=== PATIENT | male | born 1950 ===

== ENCOUNTER 2024-12-21 15:17 | Observation (INO) | payer MEDICARE, OTHER ==
[~2024-12-21] VITALS: Ht 172.7 cm; Wt 71.4 kg
[2024-12-21] VITALS (23 sets, daily range): BP systolic 109–169; BP diastolic 42–75
--- NOTE | 2024-12-21 15:20 | NUR ---
PT TO RM 6 VIA EMS.
[2024-12-21 15:41] LABS: BASO% 0.3 % (0-3); EOS% 1.2 % (0-8); LYMPH% 17.9 % (15-41); MEAN CELL VOLUME 95.6 fL CALC (80.0-100.0); MEAN CORPUSCULAR HGB 31.9 pG CALC (26.0-32.0); MEAN CORPUSCULAR HGB CONC 33.3 g/dL CAL (32.0-36.0); MONO% 9.1 % (2-13); NEUT# 4.15 thou/uL (1.82-7.42); NEUT% 71.5 % (42-76); RED BLOOD COUNT 4.08 mill/uL (4.70-6.10); RED CELL DISTRI WIDTH 12.1 % (11.5-15.5)
[2024-12-21 16:00] LABS: ALBUMIN 4.2 g/dL (3.2-5.0); ALKALINE PHOSPHATASE 41 u/l (38-126); ANION GAP 10 (6-22 (CALC)); BILIRUBIN, TOTAL 0.6 mg/dL (0.2-1.3); BUN 22 mg/dL (8-23); BUN/CREATININE RATIO 24 (12-20 (CALC)); CARBON DIOXIDE 29 mmol/l (22-30); CHLORIDE 104 mmol/l (95-108); CREATININE 0.9 mg/dL (0.7-1.3); ESTIMATED GFR 90 ML/MIN (>=90 (CALC)); POTASSIUM 4.1 mmol/l (3.5-5.1); SGOT/AST 35 u/l (19-48); SODIUM 139 mmol/l (137-146); TOTAL PROTEIN 6.7 g/dL (6.3-8.2)
[2024-12-21] MEDS ORDERED: DiphenhydrAMINE HCL 25 MG CPLT PO ONE (16:20)
[2024-12-21] MEDS ORDERED: METOCLOPRAMIDE HCL 10 MG/2 ML SDV IV ONE (16:20)
[2024-12-21] MEDS ORDERED: ORPHENADRINE CITRATE 30 MG/ML AMP IV ONE (16:25)
[2024-12-21] MEDS ORDERED: SODIUM CHLORIDE 0.9% 1,000 ML IV ONE (16:25)
[2024-12-21] MEDS ORDERED: KETOROLAC TROMETHAMINE 15 MG/ML SDV IV ONE (16:25)
--- NOTE | 2024-12-21 16:30 | NUR ---
Reassessment of patient completed. No distress noted.
--- NOTE | 2024-12-21 16:40 | NUR ---
at bedside, pt medicated. Lab and imaging results pending
[2024-12-21 17:25] LABS: URINE BILIRUBIN - DIPSTICK Negative (NEGATIVE); URINE BLOOD DIPSTICK Negative (NEGATIVE); URINE COLOR Yellow; URINE GLUCOSE - DIPSTICK Negative (NEGATIVE); URINE KETONE Negative (NEGATIVE); URINE LEUK ESTERASE Negative (NEGATIVE); URINE NITRITE - DIPSTICK Negative (Negative); URINE PROTEIN - DIPSTICK Negative (NEG-TRACE); URINE UROBILINOGEN - DIPSTICK 0.2 E.U./dL (0.2)
--- NOTE | 2024-12-21 17:28 | NUR ---
Reassessment of patient completed. No distress noted.
[2024-12-21] MEDS ORDERED: TAMSULOSIN0.4 MG PO (18:22)
[2024-12-21] MEDS ORDERED: SIMVASTATIN10 MG PO (18:22)
--- NOTE | 2024-12-21 19:00 | NUR ---
RECIEVED REPORT FROM JD RAWLS.
--- NOTE | 2024-12-21 19:12 | NUR ---
Report called and given Reynaldo on Med Surg
--- NOTE | 2024-12-21 19:48 | NUR ---
PT UPDATED ON POC, AWAITING FOR ADMISSION ORDERS AT THIS TIME. PT VOICES UNDERSTANDING WITH NO FURTHER QUESTIONS. PT CALL LIGHT WITHIN REACH.
--- NOTE | 2024-12-21 20:32 | NUR ---
PT CONTINUES WAITING FOR ADMISSION ORDERS. PT VOICES UNDERSTANDING AND APPRECIATION OF CARE.
[2024-12-21] MEDS ORDERED: ACETAMINOPHEN 325 MG/TAB PO PRN (20:40)
[2024-12-21] MEDS ORDERED: MAGNESIUM HYDROXIDE 30 ML UDC PO PRN (20:40)
[2024-12-21] MEDS ORDERED: SODIUM CHLORIDE 0.9% 1,000 ML IV PRN (20:40)
--- NOTE | 2024-12-21 20:40 | NUR ---
PATIENT CAME IN FROM ER AT 2005. BEDSIDE ASSESSMENT COMPLETE. PATIENT IS A&O X4. CAN MAKE NEEDS KNOWN, NONE NEEDED AT THIS TIME. NO COMPLAINTS OF PAIN AT THIS TIME. EQUAL UNLABORED RESP. PERIPHERAL PULSES STRONG AND EQUAL. IVF INFUSING PER EMAR. BED AT LOWEST POSITION. CALL LIGHT WITH IN REACH.
[2024-12-21] MEDS ORDERED: ENOXAPARIN SODIUM 40 MG/0.4 ML SYR SC SCH (21:00)
--- NOTE | 2024-12-21 21:00 | NUR ---
PT TRANSPORTED TO [facility] AT THIS TIME VIA W/C. PT PLACED ON TELE MONITORING. PT BELONGINGS PLACED IN BAG AND TAKEN UPSTAIRS TO [facility] ROOM 264. ZOOKEEPER AT BEDSIDE.
--- NOTE | 2024-12-22 00:50 | NUR ---
PATIENT IN ROOM RESTING IN BED. UNLABORED RESP. NO VISUAL SIGNS OF DISTRESS. BED AT LOWEST POSITION. CALL LIGHT WITH IN REACH.
[2024-12-22 02:29] VITALS: BP 121/58
[2024-12-22 03:22] VITALS: BP 121/57
[2024-12-22 03:52] VITALS: BP 121/57
--- NOTE | 2024-12-22 04:47 | NUR ---
PATIENT OBSERVED TO BE RESTING IN BED WITH EYES CLOSED. PATIENT RESPONDS TO VERBAL STIMULI. NO COMPLAINTS OF PAIN AT THIS TIME. BED AT LOWEST POSITION. CALL LIGHT WITH IN REACH.
[2024-12-22 07:05] VITALS: BP 129/60
--- NOTE | 2024-12-22 07:58 | NUR ---
REPORT RECIEVED. pT A/OX4. ASSESSMENT COMPLETED. RR UNLABORE DON ROOM AIR. #18G LAC INFUSING WITH IVF PER ORDER. SKIN INTACT.PT DENIES DIZZINESS THIS A.M. PT DENIES OF ANY PAINS OR DISCOMFORTS AT THIS TIME. PT ORIENTED TO ROOM AND CALL LIGHT SYSTEM.
[2024-12-22 08:42] LABS: ALBUMIN 3.5 g/dL (3.2-5.0); BILIRUBIN, TOTAL 0.6 mg/dL (0.2-1.3); CREATININE 0.9 mg/dL (0.7-1.3); POTASSIUM 4.3 mmol/l (3.5-5.1); TOTAL PROTEIN 5.8 g/dL (6.3-8.2)
[2024-12-22 10:08] VITALS: BP 117/53
--- NOTE | 2024-12-22 11:27 | NUR ---
PT RESTING IN SEMI FOWLERS POSITION. RR UNLABORED ON ROOM AIR. PENDING MRI RESULTS, POSSIIBLE DC. PT DENIES OF ANY NEEDS. SAFETY PRECAUTIONS ARE IN PLACE WITH CALL LIGHT IN REACH.
[2024-12-22] MEDS ORDERED: ASPIRIN 81 LOW81 MG PO (13:34)
[2024-12-22] MEDS ORDERED: MECLIZINE25 MG PO (13:35)
--- NOTE | 2024-12-22 14:05 | NUR ---
PT EDUCATED ON DC INSTRUCTIONS AND NEW MEDS. PT VERBALIZED UNDERSTANDING. IV REMOVED [facility] CATH INTAC. TLE REMOVED ER INFORMED.
--- NOTE | 2024-12-26 09:54 | NUR ---
Discharge follow up call completed 12/26/24. pATIENT STATES HE IS DOING WELL AND HAS HAD NO ISSUES SINCE DISCHARGE. pATIENT IS TAKING PRESCRIBED MEDICATION DIRECTED. pATIENT HAS NOT MADE A FOLLOW UP APOINTMENT YET BUT WILL DO SO. nO NEEDS OR CONCERNS VERBALIZED AT THIS TIME. pATIENT IS APPRECIATIVE OF FOLLOW UP CALL.
== END 2024-12-22 13:58 | disposition home or self-care (01) ==
LOC: ED 15:17 → ED-I 16:35 → ED 18:06 → MS2 18:07
PROVIDERS: Nurse Practitioner; Nurse Practitioner Family; ADMIT Internal Medicine; ATTEND Internal Medicine
DX: R42 Dizziness and giddiness (principal); E78.5 Hyperlipidemia, unspecified; N40.0 Benign prostatic hyperplasia without lower urinary tract symptoms
CPT/HCPCS: G0378; J1650; J1885; J2360; J2765